=== PATIENT | female | born 1970 | race Caucasian/White ===

== ENCOUNTER 2022-03-09 14:04 | Emergency (ER) | payer OTHER ==
[2022-03-09 16:02] LABS: #Basophils 0.1 10x3/uL (0.0-0.2); #Eosinphils 0.2 10x3/uL (0.0-0.5); #Monocytes 0.6 10x3/uL (0.0-1.1); #Neutrophils 5.8 10x3/uL (1.5-8.4); %Basophils 0.9 % (0.0-2.0); %Eosinophils 2.3 % (0.0-6.0); %Lymphocytes 14.1 % (18.0-47.0); %Monocytes 7.4 % (0.0-10.0); Hemoglobin 12.2 g/dL (12.0-15.5); Mean Corpuscular HGB CONC 33.3 g/dL (32.0-36.0); Mean Corpuscular Hemoglobin 30.2 pg (27.0-33.0); Mean Corpuscular Volume 90.6 fl (81.6-98.3); Mean Platelet Volume 9.2 fl (7.4-10.4); Platelet Count 274 10x3/uL (150-450); RBC Distribution Width 12.1 % (11.5-14.5); Red Blood Cell (RBC) Count 4.04 10x6/uL (3.90-5.03); White Blood Cell (WBC) Count 7.7 10x3/uL (3.5-10.5)
[2022-03-09] MEDS ORDERED: Ondansetron PF 4 MG/2 ML Vial ONE (16:08)
[2022-03-09 16:21] LABS: ALT (SGPT) 19 U/L (8-55); AST (SGOT) 19 U/L (5-34); Albumin 4.6 g/dL (3.5-5.0); Alkaline Phosphatase 64 U/L (40-110); Anion Gap 13 mmol/L (10-20); BUN (Urea Nitrogen) 15 mg/dL (9.8-20.1); Bilirubin, Total 0.4 mg/dL (0.2-1.2); Calc. Creatinine Clearance 0 mL/min (70-130); Calcium 9.8 mg/dL (7.8-10.44); Carbon Dioxide 26 mmol/L (22-29); Chloride 105 mmol/L (98-107); Glucose 89 mg/dL (70-105); Iron 37 ug/dL (50-170); Potassium 4.3 mmol/L (3.5-5.1); Protein, Total 7.6 g/dL (6.0-8.3); Sodium 140 mmol/L (136-145)
== END 2022-03-09 17:45 | disposition home or self-care (01) ==
LOC: CSHERS 14:04
DX: E86.0 Dehydration (principal); J45.909 Unspecified asthma, uncomplicated; Z85.3 Personal history of malignant neoplasm of breast
CPT/HCPCS: 36415; 80053; 82728; 83540; 85025; 96361; 96374; J2405

== ENCOUNTER 2022-04-20 09:28 | Emergency (ER) | payer OTHER ==
[2022-04-20 10:02] LABS: #Basophils 0.1 10x3/uL (0.0-0.2); #Eosinphils 0.3 10x3/uL (0.0-0.5); #Monocytes 0.5 10x3/uL (0.0-1.1); #Neutrophils 3.9 10x3/uL (1.5-8.4); %Eosinophils 4.8 % (0.0-6.0); %Lymphocytes 23.1 % (18.0-47.0); %Monocytes 8.2 % (0.0-10.0); %Neutrophils 62.7 % (40.0-75.0); Hemoglobin 13.2 g/dL (12.0-15.5); Mean Corpuscular HGB CONC 33.8 g/dL (32.0-36.0); Mean Corpuscular Hemoglobin 30.1 pg (27.0-33.0); Mean Corpuscular Volume 89.3 fl (81.6-98.3); Mean Platelet Volume 9.1 fl (7.4-10.4); Platelet Count 307 10x3/uL (150-450); RBC Distribution Width 11.8 % (11.5-14.5); Red Blood Cell (RBC) Count 4.38 10x6/uL (3.90-5.03); White Blood Cell (WBC) Count 6.2 10x3/uL (3.5-10.5)
[2022-04-20 10:17] LABS: ALT (SGPT) 19 U/L (8-55); AST (SGOT) 18 U/L (5-34); Albumin 4.6 g/dL (3.5-5.0); Alkaline Phosphatase 63 U/L (40-110); Anion Gap 15 mmol/L (10-20); BUN (Urea Nitrogen) 12 mg/dL (9.8-20.1); Bilirubin, Total 0.7 mg/dL (0.2-1.2); Calc. Creatinine Clearance 0 mL/min (70-130); Calcium 9.9 mg/dL (7.8-10.44); Carbon Dioxide 24 mmol/L (22-29); Chloride 102 mmol/L (98-107); Estimated GFR 84; Globulin 3.2 g/dL (2.4-3.5); Glucose 91 mg/dL (70-105); Protein, Total 7.8 g/dL (6.0-8.3); Sodium 137 mmol/L (136-145)
[2022-04-20] MEDS ORDERED: Ketorolac Tromethamine 30 MG/ML VIAL ONE (10:51)
== END 2022-04-20 11:35 | disposition home or self-care (01) ==
LOC: CSHERS 09:28
DX: R07.89 Other chest pain (principal); N64.4 Mastodynia
CPT/HCPCS: 71045; 80053; 84484; 85025; 85379; 93005; 96374; J1885

== ENCOUNTER 2022-07-14 15:08 | Outpatient (CLI) | payer OTHER | END 2022-07-14 15:09 | disposition home or self-care (01) | LOC: CSHMRI 15:08 | PROVIDERS: ATTEND Family Medicine | DX: R29.810 Facial weakness (principal); R47.89 Other speech disturbances; R11.2 Nausea with vomiting, unspecified; C50.912 Malignant neoplasm of unspecified site of left female breast; T45.1X5D Adverse effect of antineoplastic and immunosuppressive drugs, subsequent encounter; Z98.890 Other specified postprocedural states; J32.1 Chronic frontal sinusitis | CPT/HCPCS: 70553 ==

== ENCOUNTER 2022-10-25 12:37 | Outpatient (CLI) | payer OTHER | END 2022-10-25 12:38 | disposition home or self-care (01) | LOC: CSHMRI 12:37 | PROVIDERS: ATTEND Specialist | DX: C50.912 Malignant neoplasm of unspecified site of left female breast (principal) | CPT/HCPCS: C8908 ==

== ENCOUNTER 2023-08-15 16:39 | Emergency (ER) | payer OTHER ==
[2023-08-15] MEDS ORDERED: Cyclobenzaprine 10 MG TAB ONE (18:07)
[2023-08-15] MEDS ORDERED: Ibuprofen 200 MG TAB ONE (18:07)
== END 2023-08-15 19:08 | disposition home or self-care (01) ==
LOC: CSHERS 16:39
DX: S09.90XA Unspecified injury of head, initial encounter (principal); M54.2 Cervicalgia; J45.909 Unspecified asthma, uncomplicated; W07.XXXA Fall from chair, initial encounter
CPT/HCPCS: 70450; 72125